=== PATIENT | male | born 1950 | race Caucasian/White ===

== ENCOUNTER → 2016-03-29 | Outpatient (CLI) | payer OTHER | LOC: MOB LAB 13:38 | DX: L02.415 Cutaneous abscess of right lower limb (principal); W22.8XXA Striking against or struck by other objects, initial encounter; Z23 Encounter for immunization | CPT/HCPCS: 87070; 87077; 87186 ×2; 87205; 90715; G0463 ==

== ENCOUNTER → 2016-03-31 | Outpatient (CLI) | payer OTHER | LOC: MMPC 09:00 | DX: S81.801D Unspecified open wound, right lower leg, subsequent encounter (principal); K74.60 Unspecified cirrhosis of liver ==

== ENCOUNTER → 2016-04-01 | Outpatient (CLI) | payer OTHER | LOC: MMPC 09:00 | DX: S81.801D Unspecified open wound, right lower leg, subsequent encounter (principal) ==

== ENCOUNTER → 2016-04-04 | Outpatient (CLI) | payer OTHER | LOC: MMPC 11:11 | PROVIDERS: ATTEND Physician Assistant | DX: S81.801D Unspecified open wound, right lower leg, subsequent encounter (principal) | CPT/HCPCS: 99211; G0463 ==

== ENCOUNTER → 2016-04-05 | Outpatient (CLI) | payer OTHER ==
--- NOTE | 2016-04-05 12:01 | DI ---
History: Hepatocellular carcinoma. Both major hepatic lobes are involved. Evaluate current status. Prior examination: MRI scan done 03/19/16. Examination performed in axial projection with sagittal and coronal reconstruction of the data set. P atient did receive intravenous contrast material, 100 cc of Isovue 350. Dose profile CT DI 11.5, DLP 375.2 Findings: S. on the prior study, there is irregular margination of the hepatic contour, consistent wi th cirrhosis. MRI would provide more detailed and accurate information regarding the number of masses within the hepatic parenchyma. In this case, the largest mass is in the midportion of the right hepa tic lobe which is perhaps best seen on , at measuring 7.7 x 5.2 cm today. No visible hepatic mas s is seen in the left lobe. Refer to the MRI study. Regarding the pancreas, it appears normal. There is some ascites mostly around the liver but some in the lesser sac in the perisplenic area. The spleen is markedly enlarged. It is 21 x 7.2 x 17 cm. Lung bases unremarkable for nodularity or effusion. No cardiac effusion but the heart itself is large with a CT ratio of 14/26. Again the mesentery, there are no large masses but there are nodules along the mesenteric margins in the omentum, suggesting metastatic process versus prominent vessels. The v essels may be on the basis of portal hypertension. Overall, duodenal wall appears moderately thickened. This may be a function of duodenum is. Vascular congestion based upon portal hypertension is another consideration. Bone window setting show what appears to be a sclerotic lesion right sacral ala image 35/ at 1.7 x 3.2 cm, partially depicted. This could represent a metastatic focus The left lower quadrant has a metallic reservoir for analgesia. The lead extends well into the thorac ic neural canal. Impression: Calcified mass consistent with primary hepatocellular carcinoma in the midportion of righ t hepatic lobe. MRI describes numerous intrahepatic metastatic lesions. Cirrhosis with hepatosplenomegaly, ascites and probable portal hypertension. Increased vascular promi nence in the omentum and mesentery. Peritoneal seeding with metastatic disease cannot be excluded wit h certainty. Thickening of the duodenal wall which may be on the basis of portal hypertension but duodenitis canno t be excluded No evidence of metastatic disease to the lung bases. Mild cardiomegaly Both kidneys appear normal as are the adrenal glands except for a simple right renal cyst image / . Bone window setting shows what may constitute a sclerotic lesion in the right sacral ala, final image 95/95. See detailed discussion above
== END ==
LOC: CT 08:04
PROVIDERS: ATTEND Internal Medicine Gastroenterology
DX: C22.0 Liver cell carcinoma (principal); R16.2 Hepatomegaly with splenomegaly, not elsewhere classified; I51.7 Cardiomegaly
CPT/HCPCS: 74170

== ENCOUNTER → 2016-04-06 | Outpatient (CLI) | payer OTHER | LOC: MMPC 09:00 | DX: S81.801D Unspecified open wound, right lower leg, subsequent encounter (principal) ==

== ENCOUNTER → 2016-04-07 | Outpatient (CLI) | payer OTHER | LOC: MMPC 09:00 | PROVIDERS: ATTEND Physician Assistant Medical | DX: S81.801D Unspecified open wound, right lower leg, subsequent encounter (principal); Z51.89 Encounter for other specified aftercare ==

== ENCOUNTER → 2016-04-11 | Outpatient (CLI) | payer OTHER ==
[2016-04-11 10:11] LABS: BASOPHILS # (AUTO) 0.03 10*3/UL; BASOPHILS % (AUTO) 0.8 % (0-1); EOSINOPHILS % (AUTO) 5.3 % (0-8); HEMATOCRIT 32.4 % (42.0-52.0); HEMOGLOBIN 10.3 g/dL (14.0-18.0); IMM GRAN % (AUTO) 0.3 % (0-5); IMM GRAN# (AUTO) 0.01 10*3/UL; LYMPHOCYTES # (AUTO) 0.39 10*3/uL; LYMPHOCYTES % (AUTO) 10.4 % (10-50); MEAN CORPUSCULAR HEMOGLOBIN 24.8 PG (27-31); MEAN CORPUSCULAR HGB CONC 31.8 g/dL (33-37); MONOCYTES # (AUTO) 0.51 10*3/UL (0.3-0.8); MONOCYTES % (AUTO) 13.6 % (5-15); NEUTROPHILS # (AUTO) 2.62 10*3/UL; NEUTROPHILS % (AUTO) 69.6 % (50-80); RDW COEFFICIENT OF VARIATION 17.1 % (11.5-14.5); RED BLOOD COUNT 4.16 10^6/uL (4.70-6.10); WHITE BLOOD COUNT 3.76 10^3/uL (4.8-10.8)
[2016-04-11 10:33] LABS: HEMOGLOBIN A1C 11.44 % (4.2-6.0); MEAN BLOOD GLUCOSE (CALC) 294.952 mg/dL
[2016-04-11 10:37] LABS: ASPARTATE AMINO TRANSFERASE 35 IU/L (21-57); BILIRUBIN,TOTAL 1.6 mg/dL (0.3-1.2); BLOOD UREA NITROGEN 15 mg/dL (7-22); CALCIUM 8.5 mg/dL (8.7-10.7); CHLORIDE 98 meq/L (98-112); CREATININE 0.6 mg/dL (0.70-1.50); EST GLOMERULAR FILTRATION > 60 (>60 ml/min/1.73m(2)); POTASSIUM 4.3 meq/L (3.8-5.2); SODIUM 133 meq/L (135-145); TOTAL PROTEIN 7.5 g/dL (6.1-8.0)
[2016-04-11 10:44] LABS: PLATELET MORPHOLOGY COMMENT SEE COMMENTS (NORM)
[2016-04-11 10:53] LABS: GLUCOSE 412 mg/dL (78-110)
== END ==
LOC: LAB 09:50
DX: K70.30 Alcoholic cirrhosis of liver without ascites (principal); E11.9 Type 2 diabetes mellitus without complications; D61.818 Other pancytopenia
CPT/HCPCS: 36415; 80053; 82140; 83036; 85025

== ENCOUNTER → 2016-04-13 | Outpatient (CLI) | payer OTHER | LOC: MOB LAB 10:36 | DX: R71.8 Other abnormality of red blood cells (principal); E11.9 Type 2 diabetes mellitus without complications | CPT/HCPCS: 36415; 82728; 83540; 83550; 84681 ==

== ENCOUNTER → 2016-04-22 | Outpatient (CLI) | payer OTHER | LOC: MMPC 11:11 | PROVIDERS: ATTEND Physician Assistant | DX: H57.13 Ocular pain, bilateral (principal); H57.8 Other specified disorders of eye and adnexa ==